=== PATIENT | female | born 1995 | race Caucasian/White ===

== ENCOUNTER 2018-05-01 22:15 | Emergency (ER) | payer BC ==
[2018-05-01 23:14] LABS: ABS Basophils 0 10^3/ul (0-0.2); ABS Eosinophils 0.1 10^3/ul (0-0.6); ABS Lymphocytes 2.9 10^3/ul (1.0-4.8); ABS Monocytes 0.5 10^3/ul (0-0.8); ABS Neutrophils 3.1 10^3/ul (1.5-7.7); ABS Nucleated RBC 0 10^3/ul; Eosinophil % 1.8 % (0-6); Hematocrit 38 % (35-47); Hemoglobin 13.1 g/dl (12.0-16.0); Lymphocyte % 44.3 % (25-47); Mean Corpuscular HGB Conc 35 g/dl (31-36); Mean Corpuscular Hemoglobin 32 pg (27-31); Mean Corpuscular Volume 92 fL (80-97); Mean Platelet Volume 7.7 um3 (7.4-10.4); Nucleated Red Blood Cells % 0.1; Platelet Count 234 10^3/ul (150-450); Red Cell Distribution Width 12 % (10.5-15); White Blood Count 6.7 10^3/ul (3.5-10.8)
--- NOTE | 2018-05-01 23:16 | ED ---
GI/ HPI - HPI Summary HPI Summary: Complains of left flank pain x 2 days with pain worse today. Also admits to having current UTI symptoms for which she is taking Cipro which was started on Wednesday. UTI symptoms include pain with urination and increased frequency. History of recurrent UTI. Flank pain worse with movement, rated 7 out of 10, constant. Denies fever, blood in urine, abdominal pain, N/V/D, vaginal symptoms , trauma, recent heavy lifting or bending. Likely history is none. P2 weeks ago. Denies . - History of Current Complaint Chief Complaint: EDFlankPain Time Seen by Provider: 05/01/18 22:48 Stated Complaint: UTI, UPPER BACK PAIN Hx Obtained From: Patient Onset/Duration: Started Days Ago Timing: Constant Severity: Moderate Current Severity: Moderate Pain Intensity: 7 Location of Pain: Flank - Allergy/Home Medications Allergies/Adverse Reactions: Allergies Allergy/AdvReac Type Severity Reaction Status Date / Time No Known Allergies Allergy Verified 05/01/18 22:30 PMH/Surg Hx/FS Hx/Imm Hx Endocrine/Hematology History: Denies: Hx Anticoagulant Therapy Cardiovascular History: Denies: Hx Cardiac Arrest History: Denies: Hx Dialysis Neurological History: Denies: Hx CVA Infectious Disease History: No Infectious Disease History: Denies: Traveled Outside the [place] in Last 30 Days - Social History Occupation: Student Alcohol Use: Occasionally Substance Use Type: Reports: None Smoking Status (MU): Never Smoked Tobacco Review of Systems Constitutional: Negative Eyes: Negative ENT: Negative Cardiovascular: Negative Respiratory: Negative Gastrointestinal: Negative Positive: burning, frequency, flank pain Musculoskeletal: Negative Skin: Negative Neurological: Negative Psychological: Normal All Other Systems Reviewed And Are Negative: Yes Physical Exam - Summary Physical Exam Summary: Left CVA tenderness. Triage Information Reviewed: Yes Vital Signs On Initial Exam: Initial Vitals Temp Pulse Resp BP Pulse Ox 98.3 F 68 16 134/88 97 05/01/18 22:27 05/01/18 22:27 05/01/18 22:27 05/01/18 22:27 05/01/18 22:27 Vital Signs Reviewed: Yes Appearance: Positive: Well-Appearing Skin: Positive: Warm Head/Face: Positive: Normal Head/Face Inspection Eyes: Positive: Normal Neck: Positive: Supple Respiratory/Lung Sounds: Positive: Clear to Auscultation Cardiovascular: Positive: Normal Abdomen Description: Positive: Nontender Musculoskeletal: Positive: Normal Neurological: Positive: Normal Psychiatric: Positive: Normal AVPU Assessment: Alert - Ophelia Coma Scale Best Eye Response: 4 - Spontaneous Best Motor Response: 6 - Obeys Commands Best Verbal Response: 5 - Oriented Coma Scale Total: 15 Diagnostics - Vital Signs Vital Signs Temp Pulse Resp BP Pulse Ox 05/01/18 22:27 98.3 F 68 16 134/88 97 - Laboratory Result Diagrams: 05/01/18 23:02 05/01/18 23:02 Lab Statement: Any lab studies that have been ordered have been reviewed, and results considered in the medical decision making process. - CT ab/pel w/o CT Interpretation: No Acute Changes CT Interpretation Completed By: Radiologist JONO Course/Dx - Course Course Of Treatment: Complains of left flank pain x 2 days with pain worse today. Also admits to having current UTI symptoms for which she is taking Cipro which was started on Wednesday. UTI symptoms include pain with urination and increased frequency. History of recurrent UTI. Flank pain worse with movement, rated 7 out of 10, constant. Denies fever, blood in urine, abdominal pain, N/V/D, vaginal symptoms, trauma, recent heavy lifting or bending. Likely history is none. P2 weeks ago. Denies . Left CVA tenderness. Vital signs within normal limits. Labs unremarkable. CT abdomen and pelvis without contrast unremarkable. Rx for hydrocodone 4 tablets. - Diagnoses Provider Diagnoses: Left flank pain Discharge - Sign-Out/Discharge Documenting (check all that apply): Patient Departure - Discharge Plan Condition: Stable Disposition: HOME Patient Education Materials: Flank Pain (ED) Referrals: No Primary Care Phys,NOPCP [Primary Care Provider] - Additional Instructions: Drink plenty of fluids. Continue take Cipro as directed. Return to the ED for any new or worsening symptoms - Billing Disposition and Condition Condition: STABLE Disposition: Home
[2018-05-01 23:32] LABS: EGFR Non-African American 87.6 (>60)
[2018-05-01 23:33] LABS: Urine Appearance Clear; Urine Blood Negative (Negative); Urine Color Yellow; Urine Ketones Negative (Negative); Urine Protein Negative (Negative); Urine Specific Gravity 1.015 (1.010-1.030); Urine Urobilinogen Negative (Negative)
[2018-05-01] MEDS ORDERED: Acetaminophen TAB* 325 MG PO ONE (23:45)
--- NOTE | 2018-05-02 00:58 | RAD ---
EXAM: CT Abdomen and Pelvis Without Intravenous Contrast EXAM DATE/TIME: Exam ordered 05/01/2018 11:59 PM CLINICAL HISTORY: 22 years old, female; Pain; Abdominal pain; Flank; Left; Additional info: Abd pain/left flank pain/current uti. TECHNIQUE: Axial computed tomography images of the abdomen and pelvis without intravenous contrast. All CT scans at this facility use at least one of these dose optimization techniques: automated exposure control; mA and/or kV adjustment per patient size (includes targeted exams where dose is matched to clinical indication); or iterative reconstruction. Coronal and sagittal reformatted images were created and reviewed. COMPARISON: No relevant prior studies available. FINDINGS: Lung bases: Unremarkable. No mass. No consolidation. ABDOMEN: Liver: Unremarkable. Gallbladder and bile ducts: The gallbladder is contracted with no stones. No ductal dilation. Pancreas: Unremarkable. No ductal dilation. Spleen: Unremarkable. No splenomegaly. Adrenals: Unremarkable. No mass. Kidneys and ureters: Unremarkable. No obstructing stones. No hydronephrosis. Stomach and bowel: Mild stool and gas throughout the colon. No obstruction. No mucosal thickening. PELVIS: Appendix: Partial visualization of a normal appendix. Bladder: Unremarkable. No stones. Reproductive: Unremarkable as visualized. ABDOMEN and PELVIS: Intraperitoneal space: Trace fluid in the cul-de-sac which is physiologic in amount. No free air. Bones/joints: No acute fracture. No dislocation. Soft tissues: Unremarkable. Vasculature: Unremarkable. No abdominal aortic aneurysm. Lymph nodes: Unremarkable. No enlarged lymph nodes. IMPRESSION: Negative CT abdomen/pelvis. No renal or ureteral calculi are evident and there is no evidence of obstructive uropathy. Pyelonephritis is not excluded on this noncontrast scan.
[2018-05-02] MEDS ORDERED: HYDROcodone/ACETAMIN 5-325 MG* 1 TAB PO ONE (01:14)
[2018-05-02 01:35] VITALS: BP 122/67
== END 2018-05-02 01:34 | disposition home or self-care (01) ==
LOC: ED 22:15
DX: M54.5 Low back pain (principal); R30.0 Dysuria; Z87.440 Personal history of urinary (tract) infections
CPT/HCPCS: 36415; 74176; 80053; 81003; 84702; 85025; 86140; 99283; A9270-GY

== ENCOUNTER 2018-09-13 13:30 | Emergency (ER) | payer BC ==
[2018-09-13 13:51] VITALS: BP 120/71
--- NOTE | 2018-09-13 15:10 | UC ---
Skin Complaint HPI - HPI Summary HPI Summary: PATIENT WAS SEEN AT URGENT CARE 2 DAYS AGO AND DIAGNOSED WITH GENITAL HERPES. WAS PLACED ON VALTREX WHICH SHE HAS BEEN TAKING. SHE STATES THEY TOOK A SWAB BUT SHE HAS NOT HEARD OF ANY RESULTS YET. IS HERE BECAUSE SHE HAS SOME QUESTIONS ABOUT HER DIAGNOSIS. STATES THEY DID NOT GIVE HER MUCH INFORMATION. SHE IS CONCERNED BECAUSE THE LESION SEEMS TO BE WORSENING. SHE REPORTS HAVING UNPROTECTED SEX WITH 2 DIFFERENT MALE PARTNERS IN THE PAST WEEK AND A HALF. 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 Negative: Nausea, Fever - Allergy/Home Medications Allergies/Adverse Reactions: Allergies Allergy/AdvReac Type Severity Reaction Status Date / Time No Known Allergies Allergy Verified 09/13/18 13:44 Home Medications: Home Medications Norethindrone-E.estradiol-Iron [Blisovi Fe 08/28 1-20 mg-Mcg] 1 tab PO DAILY 12/25 [History Confirmed 09/13/18] Omeprazole CAP (NF) [Prilosec CAP* 20 MG] 20 mg PO DAILY 09/13/18 [History Confirmed 09/13/18] ValACYclovir (*) [Valtrex 1 GM(*)] 1 gm PO BID 09/13/18 [History Confirmed 09/13] metroNIDAZOLE VAGINAL 0.75%* 1 applic VAGINAL BEDTIME 09/13/18 [History Confirmed 09/13/18] PMH/Surg Hx/FS Hx/Imm Hx Previously Healthy: Yes Other History Of: Negative For: Anticoagulant Therapy - Surgical History Surgical History: None - Family History Known Family History: Positive: Non-Contributory - Social History Alcohol Use: Occasionally Substance Use Type: None Smoking Status (MU): Never Smoked Tobacco Review of Systems All Other Systems Reviewed And Are Negative: Yes Constitutional: Positive: Negative Skin: Positive: Rash Respiratory: Positive: Negative Cardiovascular: Positive: Negative Gastrointestinal: Positive: Negative Physical Exam Triage Information Reviewed: Yes Appearance: Well-Appearing, No Pain Distress, Well-Nourished Vital Signs: Initial Vital Signs Temp 99.5 F 09/13/18 13:47 Pulse 64 09/13/18 13:47 Resp 18 09/13/18 13:47 BP 120/71 09/13/18 13:47 Pulse Ox 100 09/13/18 13:47 Vital Signs Reviewed: Yes Eyes: Positive: Conjunctiva Clear ENT: Positive: Hearing grossly normal Neck: Positive: Supple Respiratory: Positive: No respiratory distress, No accessory muscle use Cardiovascular: Positive: Pulses Normal Abdomen Description: Positive: Soft Musculoskeletal: Positive: No Edema Neurological: Positive: Alert Psychological: Positive: Normal Response To Family, Age Appropriate Behavior Skin: Positive: Rashes - SCATTERED VESICULAR RASH LEFT NECK. TENDER., Other - PT DECLINED VAGINAL EXAM Course/Dx - Course Course Of Treatment: PATIENT DECLINED VAGINAL EXAM TODAY. ALL QUESTIONS WERE ANSWERED TODAY. ADVISED TO CONTINUE TAKING THE VALTREX PRESCRIBED. NO SEXUAL INTERCOURSE DURING AN OUTBREAK. DISCUSSED DAILY PROPHYLACTIC THERAPY. SHE WILL FOLLOW-UP WITH HER PLASMA TABLE OPERATOR NEXT WEEK TO DISCUSS THIS FURTHER. ENCOURAGED TO FOLLOW UP WITH 5* ABOUT HER CULTURE RESULTS. SHE ALSO HAS A VESICULAR RASH ON HER LEFT NECK WHICH MAY OR MAY NOT BE HERPES. ADVISED DERMATOLOGY FOLLOW-UP AND TO AVOID INTIMATE CONTACT. - Diagnoses Provider Diagnosis: Genital herpes Discharge - Sign-Out/Discharge Documenting (check all that apply): Patient Departure All imaging exams completed and their final reports reviewed: No Studies - Discharge Plan Condition: Stable Disposition: HOME Patient Education Materials: Genital Herpes Simplex (ED) Referrals: [facility] [Provider Group] - If Needed Additional Instructions: THE RASH ON YOUR NECK MAY OR MAY NOT BE RELATED TO YOUR RECENT HERPES DIAGNOSIS. IF IT DOES NOT CLEAR UP IN A FEW DAYS FOLLOW-UP WITH A CODE OFFICIAL FOR FURTHER EVALUATION. KEEP YOUR PLASMA TABLE OPERATOR APPT NEXT WEEK. IBUPROFEN MAX DOSE: 600MG (3 TABS) EVERY 6 HRS OR 800MG (4 TABS) EVERY 8 HRS OR NAPROXEN MAX DOSE: 440MG (2 TABS) EVERY 12 HRS TYLENOL MAX DOSE: 1000MG (2 EXTRA STRENGTH TABS) EVERY 8 HRS OR 650MG (2 REGULAR TABS) EVERY 6 H[address] [place] DR. CHULA HERNANDEZ [facility], [facility] [address]; [address] [place] [address] Dr. Carmen Vernon Address: [address] [place] [address] DR. ANG SCOTT [facility] D[facility] [address] [place] [address] [address] [place] [address] Lesa Edge DERMATOLOGY [place] DR. SALONI PRESLEY [phone] - Billing Disposition and Condition Condition: STABLE Disposition: Home
== END 2018-09-13 15:25 | disposition home or self-care (01) ==
LOC: UCEAST 13:30
DX: A60.00 Herpesviral infection of urogenital system, unspecified (principal)
CPT/HCPCS: 99202; G0463